=== PATIENT | male | born 1985 | race Caucasian/White ===

== ENCOUNTER 2017-06-10 00:40 | Emergency (ER) | payer OTHER ==
[~2017-06-10] VITALS: Ht 172.7 cm; Wt 65.8 kg
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
--- NOTE | 2017-06-10 02:03 | NUR ---
CP AT BEDSIDE. PT RESTING QUIETLY. VSS/RESP EVEN UNLABORED.
[2017-06-10] MEDS ORDERED: ONDANSETRON HCL/PF 4 MG/2 ML VIAL IVP ONE (02:30)
[2017-06-10] MEDS ORDERED: HYDROMORPHONE INJ 2 MG/ML DISP.SYRIN IV ONE (02:30)
[2017-06-10] MEDS ORDERED: ONDANSETRON HCL/PF 4 MG/2 ML VIAL ONE (02:36)
[2017-06-10 02:44] LABS: BASOPHILS # (AUTO) 0.1 /CMM (0.0-0.2); BASOPHILS % (AUTO) 0.5 % (0.0-2.0); EOSINOPHILS % (AUTO) 0.1 % (0.0-6.0); HEMATOCRIT 47 % (39-51); HEMOGLOBIN 15.6 g/dL (13.5-17.5); LYMPHOCYTES % (AUTO) 5.4 % (20.0-44.0); MEAN CORPUSCULAR HEMOGLOBIN 31 PG (26.0-33.0); MEAN CORPUSCULAR HGB CONC 33 g/dl (31.0-36.0); MEAN CORPUSCULAR VOLUME 95 fL (80-96); MONOCYTES # (AUTO) 0.8 /CMM (0.1-1.30); MONOCYTES % (AUTO) 4.5 % (2.0-12.0); NEUTROPHILS # (AUTO) 16.5 /CMM (1.8-8.9); NEUTROPHILS % (AUTO) 89.5 % (43.0-81.0); PLATELET COUNT (AUTO) 287 /CMM (150-450); RDW COEFFICIENT OF VARIATION 13.2 (11.5-15.0); WHITE BLOOD COUNT (AUTO) 18.4 K/uL (4.3-11.0)
[2017-06-10] MEDS ORDERED: HYDROMORPHONE INJ 2 MG/ML DISP.SYRIN ONE ×2 (02:45→02:48)
--- NOTE | 2017-06-10 02:55 | NUR ---
PT RELEASED BY P INTO OWN CUSTODY, AT BEDSIDE SPEAKING WITH PT.
[2017-06-10] MEDS ORDERED: IV NS 0.9% 250 ML IV ONE (02:56)
[2017-06-10] MEDS ORDERED: IOHEXOL-300 100 ML VIAL IV ONE (02:56)
[2017-06-10 03:00] LABS: INR 0.91 (0.87-1.13); PROTHROMBIN TIME 9.5 SECS (9.5-12.7)
[2017-06-10 03:04] LABS: ALBUMIN 4.2 g/dL (3.4-5.0); BILIRUBIN,DIRECT 0.2 mg/dL (0.0-0.2); BILIRUBIN,TOTAL 0.5 mg/dL (0.2-1.0); CALCIUM, SERUM 8.8 mg/dL (8.5-10.1); CREATININE 1.1 mg/dL (0.6-1.3); TOTAL PROTEIN, SERUM 7.6 g/dL (6.4-8.2)
--- NOTE | 2017-06-10 03:04 | NUR ---
PT TO CT VIA WHEELCHAIR. VSS.
--- NOTE | 2017-06-10 03:50 | NUR ---
PT REFUSING TO GIVE A URINE SAMPLE, MADE AWARE.
--- NOTE | 2017-06-10 04:32 | NUR ---
CALLED [facility] FOR [facility] TRANSFER . SPOKE WITH ADRIAN WHOM STATED THEY DO NOT HAVE [facility] SERVICE. DR. JACOBO INFORMED.
--- NOTE | 2017-06-10 04:37 | NUR ---
CALLED [facility] TRANSFER LINE . SPOKE WITH IRENE WHOM REQUESTED FAX OF [facility]. FAX: [phone]
[2017-06-10 05:12] VITALS: BP 137/84
--- NOTE | 2017-06-10 05:13 | NUR ---
IV removed. Catheter intact and site benign. Pressure and 4x4 applied to site. No bleeding noted.Patient does not wish to proceed with medical care recommended by Dr. Reyes. Patient given information related to possible complications, up to and including , which could occur as a result of leaving the hospital at this time. Patient verbalizes understanding of risks involved due to leaving against medical advice. Patient has signed AMA form.
== END 2017-06-10 05:14 | disposition left against medical advice (07) ==
LOC: ER 00:47
DX: S02.69XA Fracture of mandible of other specified site, initial encounter for closed fracture (principal); S02.40DA Maxillary fracture, left side, initial encounter for closed fracture; S02.19XA Other fracture of base of skull, initial encounter for closed fracture; F10.129 Alcohol abuse with intoxication, unspecified; V49.49XA Driver injured in collision with other motor vehicles in traffic accident, initial encounter; Y93.89 Activity, other specified; Y92.413 State road as the place of occurrence of the external cause; Y99.8 Other external cause status
CPT/HCPCS: 36415; 70486; 71010; 71260; 74160; 80048; 80076; 85025; 85730; 86850; 96374; 96375; 99285; A4606; A6402; G0480; J1170 ×2; J2405; J7050; Q9967; Z7610